=== PATIENT | female | born 1970 | race African-American/Black ===

== ENCOUNTER 2016-10-30 19:49 | Observation (INO) | payer MEDICAID ==
[~2016-10-30] VITALS: Ht 162.6 cm; Wt 94.8 kg
[~2016-10-30 19:49] MED LIST: ALBU0.084; ALBU18; OMEP20CA5 OR; PRED-188
[2016-10-30 20:44] LABS: Basophils # (auto) 0 uL; Basophils % (auto) 0.4 % (0.0-2.0); DEFINITIVE VIEW TRANSMISSION; Eosinophils # (auto) 0 uL; Eosinophils % (auto) 0.1 % (0.0-7.0); Hematocrit 38.1 % (36.0-46.0); Hemoglobin 12.4 g/dL (12.2-16.2); Lymphocytes # (auto) 0.8 uL; Lymphocytes % (auto) 10.5 % (10.0-50.0); Mean Corpuscular Hemoglobin 24.1 pg (28.0-32.0); Mean Corpuscular Hgb Conc. 32.5 g/dL (32.0-36.0); Mean Corpuscular Volume 74.3 fL (80.0-100.0); Mean Platelet Volume 11.4 fL (7.4-10.4); Monocytes # (auto) 0.1 uL; Platelet Count (auto) 296 10^3/uL (140-450); Red Cell Distribution Width 19.1 % (11.6-16.0); SUSPECT VIEW TRANSMISSION; White Blood Cell 7.9 10^3/uL (4.4-10.8)
[2016-10-30 21:06] LABS: Albumin 3.7 g/dL (3.4-5.0); Alkaline Phosphatase 84 U/L (45-117); Anion Gap 7 (5-15); Aspartate Aminotransferase 68 U/L (15-37); BUN/Creatinine Ratio 12.1; Bilirubin, Total 0.3 mg/dL (0.2-1.0); Blood Urea Nitrogen 11 mg/dL (7-18); Calcium 9.2 mg/dL (8.5-10.1); Carbon Dioxide 23 mmol/L (21-32); Chloride 108 mmol/L (98-107); GFR African American 86 mL/min; GFR Non-African American 71 mL/min; Glucose 111 mg/dL (74-106); Magnesium 2.4 mg/dL (1.6-2.6); Potassium 4.1 mmol/L (3.5-5.1); Sodium 138 mmol/L (136-145); Total Protein 8.8 g/dL (6.4-8.2)
[2016-10-30 21:47] LABS: Anisocytosis Moderate; Platelet Estimate Adequate
[2016-10-30 21:48] LABS: Hypochromia Slight; Large Platelets FEW; Ovalocytes FEW
[2016-10-31] MEDS ORDERED: ALBUTEROL SULF 2.5 MG/0.5ML(0.5%) NEB SOLN NEB ONE (04:15)
[2016-10-31] MEDS ORDERED: IPRATROPIUM BROM 0.5 MG/2.5ML INH SOL NEB ONE (04:15)
[2016-10-31 07:35] VITALS: BP 121/78
== END 2016-10-31 08:54 | disposition home or self-care (01) | DRG 351 ==
LOC: ER 19:49 → OVERFLOW 19:50 → ER 10-31 08:46
PROVIDERS: ADMIT Emergency Medicine; ATTEND Emergency Medicine
DX: S96.912A Strain of unspecified muscle and tendon at ankle and foot level, left foot, initial encounter (principal); D64.9 Anemia, unspecified; J45.909 Unspecified asthma, uncomplicated; K21.9 Gastro-esophageal reflux disease without esophagitis; M19.90 Unspecified osteoarthritis, unspecified site; R06.2 Wheezing; W19.XXXA Unspecified fall, initial encounter; Y99.8 Other external cause status; Y92.89 Other specified places as the place of occurrence of the external cause; Y93.89 Activity, other specified
CPT/HCPCS: 36415; 71010; 73560; 73600; 80053; 83735; 84484; 84702; 85025; 93005; 94640; 99285; G0378